=== PATIENT | female | born 1965 | race Asian ===

== ENCOUNTER 2018-02-21 10:50 | Emergency (ER) | payer MEDICARE, MEDICAID ==
[~2018-02-21] VITALS: Ht 149.9 cm; Wt 50.0 kg
[~2018-02-21 10:50] MED LIST: CYCL-1 PO; DEXL30CA3 PO; DULO30CA51 PO; FERR325T28 PO; MELO-102 PO; SCOP TP
[2018-02-21] MEDS ORDERED: ondansetron/PF 4mg/2ml inj IV ONE (11:05)
[2018-02-21] MEDS ORDERED: HYDROmorphone 1 mg/ml syringe IM ONE (11:05)
[2018-02-21] MEDS ORDERED: normal saline 1000ML IV soln IVB ONE (11:05)
[2018-02-21 11:40] LABS: BASOPHILS % (AUTO) 0.6 % (0-1); EOSINOPHILS # (AUTO) 0.1 X10'3 (0-0.9); EOSINOPHILS % (AUTO) 0.9 % (0-6); HEMATOCRIT 38.3 % (35.0-45.0); HEMOGLOBIN 12.9 g/dl (12.0-16.0); LYMPHOCYTES # (AUTO) 2.9 X10'3 (1.1-4.8); LYMPHOCYTES % (AUTO) 37.2 % (21-51); MEAN CORPUSCULAR HEMOGLOBIN 26.5 PG (27.0-31.0); MEAN CORPUSCULAR HGB CONC 33.7 % (33.0-36.5); MEAN CORPUSCULAR VOLUME 78.6 FL (78-98); MEAN PLATELET VOLUME 7.7 FL (7.4-10.4); MONOCYTES # (AUTO) 0.4 X10'3 (0-0.9); MONOCYTES % (AUTO) 5.4 % (2-12); NEUTROPHILS # (AUTO) 4.3 X10'3 (1.8-7.7); NEUTROPHILS % (AUTO) 55.9 % (42-75); PLATELET COUNT 342 X10'3 (140-440); RED BLOOD COUNT 4.88 X10'6 (4.20-5.60); WHITE BLOOD COUNT 7.7 X10'3 (4.5-11.0)
[2018-02-21 11:48] LABS: PARTIAL THROMBOPLASTIN TIME 24 SECONDS (22-32); PROTHROMBIN TIME 10.1 SECONDS (9.0-12.0)
[2018-02-21 12:05] LABS: ALANINE AMINOTRANSFERASE 28 U/L (12-78); ALBUMIN/GLOBULIN RATIO 1.1 (1.1-1.5); ALKALINE PHOSPHATASE 75 IU/L (46-116); ANION GAP 12 (8-16); ASPARTATE AMINO TRANSFERASE 25 U/L (10-37); BILIRUBIN,TOTAL 0.7 MG/DL (0.1-1.0); BLOOD UREA NITROGEN 14 MG/DL (7-18); BUN/CREATININE RATIO 20.6 (6.6-38.0); CALCIUM 9.5 MG/DL (8.5-10.1); CHLORIDE 102 MMOL/L (99-107); CREATININE 0.68 MG/DL (0.40-0.90); GLUCOSE 92 MG/DL (70-104); LIPASE 155 U/L (73-393); POTASSIUM 3.5 MMOL/L (3.5-5.1); SODIUM 139 MMOL/L (135-145); TOTAL CARBON DIOXIDE 24.8 MMOL/L (24-32); TOTAL PROTEIN 7.8 G/DL (6.4-8.2); eGFR 90 ML/MIN
[2018-02-21 13:17] LABS: CLARITY,URINE CLEAR (Clear); COLOR,URINE YELLOW (Yellow); GLUCOSE, URINE NEGATIVE (Neg); KETONES,URINE NEGATIVE (Neg); LEUKOCYTE ESTERASE ,URINE SMALL (Neg); NITRITES, URINE NEGATIVE (Neg); OCCULT BLOOD,URINE SMALL (Neg); PH,URINE 7.5 (4.8-8.0); PROTEIN,URINE NEGATIVE (Neg); UROBILINOGEN,URINE 0.2 E.U/dL (0.2-1.0)
[2018-02-21 13:20] LABS: UA COLLECTION TYPE CLN CATCH MIDSTREAM
[2018-02-21 13:30] LABS: SQUAMOUS EPITHELIAL CELL,UR MODERATE /LPF (FEW); WBC,URINE 0-4 /HPF (0-4)
[2018-02-21 13:31] LABS: BACTERIA,URINE FEW /HPF (Neg)
[2018-02-21] MEDS ORDERED: HYDROmorphone 1 mg/ml syringe IV ONE (14:55)
[2018-02-21 15:12] VITALS: BP 132/73
== END 2018-02-21 15:30 | disposition home or self-care (01) ==
LOC: ER 10:50
DX: M54.5 Low back pain (principal); R10.30 Lower abdominal pain, unspecified; G89.29 Other chronic pain; Z85.9 Personal history of malignant neoplasm, unspecified; Z88.8 Allergy status to other drugs, medicaments and biological substances; Z88.5 Allergy status to narcotic agent; Z79.899 Other long term (current) drug therapy
CPT/HCPCS: 36415; 70450; 80053; 81001; 83690; 85025; 85610; 85730; 87077; 87088; 87186; 96372; 96374; 96375; 99285; J1170; J2405; J7030

== ENCOUNTER 2018-11-08 13:03 | Emergency (ER) | payer MEDICARE, MEDICAID ==
[~2018-11-08] VITALS: Ht 149.9 cm; Wt 49.5 kg
[2018-11-08] MEDS ORDERED: normal saline 1000ML IV soln IVB ONE (14:35)
[2018-11-08 14:44] LABS: BASOPHILS # (AUTO) 0.1 X10'3 (0-0.2); BASOPHILS % (AUTO) 0.4 % (0-1); EOSINOPHILS % (AUTO) 0 % (0-6); HEMATOCRIT 38.5 % (35.0-45.0); HEMOGLOBIN 12.9 g/dl (12.0-16.0); LYMPHOCYTES # (AUTO) 1.2 X10'3 (1.1-4.8); MEAN CORPUSCULAR HEMOGLOBIN 26.6 PG (27.0-31.0); MEAN CORPUSCULAR HGB CONC 33.7 g/dL (33.0-36.5); MEAN CORPUSCULAR VOLUME 79.1 FL (78-98); MEAN PLATELET VOLUME 7.6 FL (7.4-10.4); MONOCYTES # (AUTO) 0.6 X10'3 (0-0.9); NEUTROPHILS # (AUTO) 12.7 X10'3 (1.8-7.7); NEUTROPHILS % (AUTO) 87.6 % (42-75); PLATELET COUNT 277 X10'3 (140-440); RED BLOOD COUNT 4.86 X10'6 (4.20-5.60); RED CELL DISTRIBUTION WIDTH 13.7 % (11.5-14.5); WHITE BLOOD COUNT 14.5 X10'3 (4.5-11.0)
[2018-11-08 14:56] LABS: ALANINE AMINOTRANSFERASE 35 U/L (12-78); ALBUMIN 3.6 G/DL (3.4-5.0); ALBUMIN/GLOBULIN RATIO 0.8 (1.1-1.5); ALKALINE PHOSPHATASE 78 IU/L (46-116); ANION GAP 13 (8-16); ASPARTATE AMINO TRANSFERASE 35 U/L (10-37); BILIRUBIN,TOTAL 0.5 MG/DL (0.1-1.0); BLOOD UREA NITROGEN 14 MG/DL (7-18); BUN/CREATININE RATIO 17.1 (6.6-38.0); CALCIUM 9.5 MG/DL (8.5-10.1); CHLORIDE 98 MMOL/L (99-107); CREATININE 0.82 MG/DL (0.40-0.90); GLUCOSE 134 MG/DL (70-104); POTASSIUM 3.2 MMOL/L (3.5-5.1); SODIUM 136 MMOL/L (135-145); TOTAL PROTEIN 7.9 G/DL (6.4-8.2); eGFR 73 ML/MIN
--- NOTE | 2018-11-08 15:03 | NUR ---
TO CT SCAN
[2018-11-08 15:14] LABS: INR 1.1 INR; PROTHROMBIN TIME 10.8 SECONDS (9.0-12.0)
[2018-11-08] MEDS ORDERED: ondansetron/PF 4mg/2ml inj IV ONE (15:20)
[2018-11-08] MEDS ORDERED: acetaminophen 325mg tablet PO ONE (15:20)
--- NOTE | 2018-11-08 15:57 | NUR ---
ALEX RICKS IN ROOM, AWARE RIGHT NECK SWOLLEN AND HURTS IN ADDITION PT WINCING WHEN SHE SWALLOWS THE WATER WITH HER TYLENOL
--- NOTE | 2018-11-08 16:02 | NUR ---
PA DOES NOT WANT UA, THROAT SWABBED
[2018-11-08] MEDS ORDERED: amox tr/potassium clavulanate 875/125mg TAB PO ONE (16:05)
[2018-11-08] MEDS ORDERED: AMOX-422 PO (16:35)
[2018-11-08 17:49] VITALS: BP 110/61
== END 2018-11-08 17:55 | disposition home or self-care (01) ==
LOC: ER 13:04
DX: J02.0 Streptococcal pharyngitis (principal); R10.32 Left lower quadrant pain; R11.0 Nausea; G89.29 Other chronic pain; M54.9 Dorsalgia, unspecified; Z88.6 Allergy status to analgesic agent
CPT/HCPCS: 36415; 74176; 80053; 83605; 84145; 85025; 85610; 87040; 87880; 93005; 96374; 99284; J2405; J7030